=== PATIENT | male | born 1960 | race Caucasian/White ===

== ENCOUNTER 2016-02-27 11:22 | Emergency (ER) | payer OTHER ==
[~2016-02-27] VITALS: Ht 172.7 cm; Wt 73.1 kg
[~2016-02-27 11:22] MED LIST: KEFLEX500 MG PO; KENALOG,ARISTOC80 G1 TP; KENALOG,ARISTOC80 GM TP; KENLAOG,ARISTOC60 ML TP; NAPROSYN500 MG PO; NEOMYCIN-POLYMY10 M1 LEFT EAR; PREDNISONE10 MG PO; PREDNISONE20 MG PO; TRAMADOL HCL50 MG PO; TYLENOL REGULA325 MG PO; ULTRAM50 MG PO; VENTOLIN HFA18 GM IH; VIBRAMYCIN100 MG PO
[2016-02-27] MEDS ORDERED: ULTRAM50 MG PO (14:21)
[2016-02-27] MEDS ORDERED: NEURONTIN300 MG PO (14:21)
[2016-02-27] MEDS ORDERED: NAPROSYN500 MG PO (14:21)
[2016-02-27 14:39] VITALS: BP 129/75
== END 2016-02-27 14:40 | disposition home or self-care (01) ==
LOC: EME 11:22
DX: S82.892A Other fracture of left lower leg, initial encounter for closed fracture (principal); Z98.890 Other specified postprocedural states; Z87.891 Personal history of nicotine dependence
CPT/HCPCS: 73630; 99281; 99284

== ENCOUNTER 2016-03-17 17:30 | Emergency (ER) | payer OTHER ==
[~2016-03-17] VITALS: Ht 172.7 cm; Wt 73.0 kg
[~2016-03-17 17:30] MED LIST changes: +NEURONTIN300 MG PO
[2016-03-17] MEDS ORDERED: ZOFRAN ODT4 MG PO (21:28)
[2016-03-17] MEDS ORDERED: OXAYDO5 MG PO (21:28)
[2016-03-17 21:54] VITALS: BP 113/69
== END 2016-03-17 21:54 | disposition home or self-care (01) ==
LOC: EME 17:30 → EXP 17:30
DX: G89.29 Other chronic pain (principal); M79.672 Pain in left foot; Z79.891 Long term (current) use of opiate analgesic
CPT/HCPCS: 73610; 99281; 99283

== ENCOUNTER 2016-04-09 10:55 | Emergency (ER) | payer OTHER ==
[~2016-04-09] VITALS: Ht 172.7 cm; Wt 72.4 kg
[~2016-04-09 10:55] MED LIST changes: +OXAYDO5 MG PO; +ZOFRAN ODT4 MG PO
[2016-04-09] MEDS ORDERED: PREDNISONE20 MG PO (13:12)
[2016-04-09] MEDS ORDERED: MOBIC15 MG PO ×2 (13:12→13:15)
[2016-04-09 13:25] VITALS: BP 120/76
== END 2016-04-09 13:25 | disposition home or self-care (01) ==
LOC: EME 10:55
DX: M25.572 Pain in left ankle and joints of left foot (principal); S92.002S Unspecified fracture of left calcaneus, sequela; W17.81XS Fall down embankment (hill), sequela; Z59.0 Homelessness; Z91.018 Allergy to other foods; Z88.8 Allergy status to other drugs, medicaments and biological substances; J45.909 Unspecified asthma, uncomplicated
CPT/HCPCS: 99281; 99284; J7512

== ENCOUNTER 2016-06-16 12:22 | Emergency (ER) | payer OTHER ==
[~2016-06-16] VITALS: Ht 172.7 cm; Wt 78.2 kg
[~2016-06-16 12:22] MED LIST changes: +MOBIC15 MG PO
[2016-06-16] MEDS ORDERED: ULTRACET1 TABLET PO (13:55)
[2016-06-16] MEDS ORDERED: INDOCIN50 MG PO (13:55)
[2016-06-16 14:10] VITALS: BP 117/65
== END 2016-06-16 14:11 | disposition home or self-care (01) ==
LOC: EME 12:22
DX: S82.892A Other fracture of left lower leg, initial encounter for closed fracture (principal); X50.9XXA Other and unspecified overexertion or strenuous movements or postures, initial encounter; G89.21 Chronic pain due to trauma; Z91.19 Patient's noncompliance with other medical treatment and regimen; Z98.890 Other specified postprocedural states; Z87.891 Personal history of nicotine dependence
CPT/HCPCS: 73610; 99281; 99284

== ENCOUNTER 2016-08-27 10:03 | Emergency (ER) | payer OTHER ==
[~2016-08-27] VITALS: Ht 172.7 cm; Wt 76.9 kg
[~2016-08-27 10:03] MED LIST changes: +INDOCIN50 MG PO; +ULTRACET1 TABLET PO
[2016-08-27] MEDS ORDERED: HYDROCODON-ACE1 EAC7 PO (14:22)
[2016-08-27] MEDS ORDERED: ALLERGY RELIEF10 M5 PO (14:22)
[2016-08-27] MEDS ORDERED: GABAPENTIN800 MG PO (14:23)
[2016-08-27] MEDS ORDERED: MEDROL DOSEPAK4 MG PO (15:16)
[2016-08-27 15:37] VITALS: BP 118/73
== END 2016-08-27 15:37 | disposition home or self-care (01) ==
LOC: EME 10:03
DX: K12.2 Cellulitis and abscess of mouth (principal)
CPT/HCPCS: 87651 90; 99281; 99284; J1100

== ENCOUNTER 2017-06-16 17:19 | Emergency (ER) | payer OTHER ==
[~2017-06-16] VITALS: Ht 172.7 cm; Wt 83.9 kg
[~2017-06-16 17:19] MED LIST changes: +ALLERGY RELIEF10 M5 PO; +BENTYL20 MG PO; +CELEBREX100 MG PO; +FLEXERIL10 MG PO; +GABAPENTIN800 MG PO; +HYDROCODON-ACE1 EAC7 PO; +MEDROL DOSEPAK4 MG PO; +PERCOCET 7.51 TABLET PO; +ZOFRAN ODT8 MG PO
[2017-06-16 17:34] VITALS: BP 130/89
[2017-06-17] MEDS ORDERED: AMBIEN10 MG PO (03:58)
[2017-06-17] MEDS ORDERED: ATIVAN0.5 MG PO (03:58)
== END 2017-06-16 19:56 | disposition left against medical advice (07) ==
LOC: EME 17:19
DX: R45.851 Suicidal ideations (principal); Z53.21 Procedure and treatment not carried out due to patient leaving prior to being seen by health care provider

== ENCOUNTER 2017-06-16 22:50 | Inpatient (IN) | payer OTHER ==
[~2017-06-16] VITALS: Ht 172.7 cm; Wt 83.5 kg
[2017-06-16 23:57] LABS: HEMATOCRIT 43.1 % (38.0-50.0); HEMOGLOBIN 14.7 G/DL (12.5-16.6); MCH 31.8 PG (29.0-34.0); MCHC 34.1 G/DL (30.0-36.0); MCV 93.3 FL (86-99); PLATELET COUNT 294 K/uL (156-360); RBC DIS.WIDTH-CV 12.8 % (11.8-14.6); RBC DIS.WIDTH-SD 43.8 % (39-53); RED BLOOD COUNT 4.62 M/uL (4.00-5.50); WHITE BLOOD COUNT 7.4 K/uL (4.1-10.2)
[2017-06-17 00:16] LABS: CHLORIDE 102 mEq/L (99-109); POTASSIUM 4.3 mEq/L (3.7-5.4); SODIUM 137 mEq/L (136-147)
[2017-06-17 00:17] LABS: GLUCOSE 59 mg/dL (70-99)
[2017-06-17 00:21] LABS: CREATININE 1.2 mg/dL (0.6-1.3); GFR ESTIMATE (CALCULATED) > 59 mL/min/ (58.99-99999); SERUM ETHYL ALCOHOL 152 mg/dL
[2017-06-17 00:22] LABS: UREA NITROGEN (BUN) 11 mg/dL (9-23)
[2017-06-17 01:46] LABS: AMPHETAMINE NEGATIVE (500 ng/mL); BARBITURATES NEGATIVE (200 ng/mL); BENZODIAZEPINES PRESUMPTIVE POSITIVE (150 ng/mL); BUPRENORPHINE NEGATIVE (10 ng/mL); COCAINE NEGATIVE (150 ng/mL); METHADONE NEGATIVE (200 ng/mL); METHAMPHETAMINE NEGATIVE (500 ng/mL); OPIATES (MORPHINE) NEGATIVE (100 ng/mL); OXYCODONE NEGATIVE (100 ng/mL); PHENCYCLIDINE NEGATIVE (25 ng/mL); PROPOXYPHENE NEGATIVE (300 ng/mL); THC CANNABINOIDS NEGATIVE (50 ng/mL); TRICYCLIC ANTIDEPRESSANTS PRESUMPTIVE POSITIVE (300 ng/mL)
[2017-06-17 03:42] LABS: BENZODIAZEPINES, URINE SCREEN Negative (200 ng/mL)
[2017-06-17] MEDS ORDERED: ATIVAN0.5 MG PO (03:58)
[2017-06-17] MEDS ORDERED: AMBIEN10 MG PO (03:58)
[2017-06-17 04:16] VITALS: BP 166/92
[2017-06-17 07:49] VITALS: BP 144/70
[2017-06-17 15:44] VITALS: BP 143/80
[2017-06-18 09:39] VITALS: BP 154/87
[2017-06-18 16:00] VITALS: BP 152/99
[2017-06-18 17:53] LABS: C DIFF TOXIN NEGATIVE (NEGATIVE)
[2017-06-19 10:05] VITALS: BP 185/100
[2017-06-19 12:05] VITALS: BP 176/67
[2017-06-19 16:40] VITALS: BP 145/88
[2017-06-20 08:47] VITALS: BP 138/88
[2017-06-20 16:06] VITALS: BP 160/100
[2017-06-20 22:23] VITALS: BP 168/96
[2017-06-21 07:55] VITALS: BP 157/90
== END 2017-06-21 14:46 | disposition home or self-care (01) | DRG 882 ==
LOC: EME 22:50 → 1WEST 06-17 02:42 → EDOF 06-17 02:42 → ENRESERV 06-17 03:17 → 1WEST 06-17 04:06
PROVIDERS: Psychiatry & Neurology Psychiatry
DX: F43.23 Adjustment disorder with mixed anxiety and depressed mood (principal); R45.851 Suicidal ideations; F10.10 Alcohol abuse, uncomplicated; J45.909 Unspecified asthma, uncomplicated; Z59.0 Homelessness
CPT/HCPCS: 80048; 84999; 85027; 87493; 90839; 94640; 94640 76; 97165 GO; 99202; 99281; 99285; G0480

== ENCOUNTER 2017-07-09 11:03 | Emergency (ER) | payer OTHER ==
[~2017-07-09] VITALS: Ht 172.7 cm; Wt 79.8 kg
[~2017-07-09 11:03] MED LIST changes: +AMBIEN10 MG PO; +ATIVAN0.5 MG PO
[2017-07-09] MEDS ORDERED: CLEOCIN300 MG PO (12:22)
[2017-07-09 13:07] VITALS: BP 147/92
== END 2017-07-09 13:10 | disposition home or self-care (01) ==
LOC: EME 11:03
PROC: 0H9CXZZ Drainage of Left Upper Arm Skin, External Approach (ICD-10-PCS; principal; 2017-07-09)
DX: L02.412 Cutaneous abscess of left axilla (principal); L03.211 Cellulitis of face; B95.8 Unspecified staphylococcus as the cause of diseases classified elsewhere; J45.909 Unspecified asthma, uncomplicated; Z88.8 Allergy status to other drugs, medicaments and biological substances
CPT/HCPCS: 99281; 99283

== ENCOUNTER 2017-09-01 11:42 | Emergency (ER) | payer OTHER ==
[~2017-09-01] VITALS: Ht 172.7 cm; Wt 79.7 kg
[~2017-09-01 11:42] MED LIST changes: +CLEOCIN300 MG PO
[2017-09-01 13:43] LABS: ALBUMIN 4.4 g/dL (3.2-4.8); CHLORIDE 104 mEq/L (99-109); SODIUM 140 mEq/L (136-147)
[2017-09-01 13:45] LABS: HEMATOCRIT 43.1 % (38.0-50.0); HEMOGLOBIN 14.6 G/DL (12.5-16.6); MCH 31.9 PG (29.0-34.0); MCHC 33.9 G/DL (30.0-36.0); MCV 94.3 FL (86-99); PLATELET COUNT 194 K/uL (156-360); RBC DIS.WIDTH-CV 13.6 % (11.8-14.6); RBC DIS.WIDTH-SD 46.8 % (39-53); RED BLOOD COUNT 4.57 M/uL (4.00-5.50); WHITE BLOOD COUNT 5.3 K/uL (4.1-10.2)
[2017-09-01 13:46] LABS: GLUCOSE 101 mg/dL (70-99); TOTAL PROTEIN 7.7 g/dL (6.4-8.3)
[2017-09-01 13:48] LABS: TOTAL BILIRUBIN 0.5 mg/dL (0.0-1.0)
[2017-09-01 13:49] LABS: ALKALINE PHOSPHATASE 99 IU/L (3-129); GFR ESTIMATE (CALCULATED) > 59 mL/min/ (58.99-99999)
[2017-09-01 13:50] LABS: UREA NITROGEN (BUN) 8 mg/dL (9-23)
[2017-09-01 13:51] LABS: AST (GOT) 72 IU/L (2-34)
[2017-09-01 13:52] LABS: ALT (GPT) 76 IU/L (3-49)
[2017-09-01 14:11] LABS: MONOSPOT (MONONUCLEOSIS SEROL) NEGATIVE
[2017-09-01 18:03] VITALS: BP 187/101
== END 2017-09-01 18:04 | disposition home or self-care (01) ==
LOC: EME 11:42
PROVIDERS: Physician Assistant Medical
DX: J02.9 Acute pharyngitis, unspecified (principal); J45.909 Unspecified asthma, uncomplicated; F32.9 Major depressive disorder, single episode, unspecified
CPT/HCPCS: 70491; 80053; 85027; 86308; 87081; 87651 90; 99281; 99285; J0561; J1100; J7030

== ENCOUNTER 2017-10-10 20:31 | Emergency (ER) | payer OTHER ==
[~2017-10-10] VITALS: Ht 172.7 cm; Wt 80.8 kg
[2017-10-10 23:07] LABS: HEMATOCRIT 40.1 % (38.0-50.0); HEMOGLOBIN 13.7 G/DL (12.5-16.6); MCH 32.2 PG (29.0-34.0); MCHC 34.2 G/DL (30.0-36.0); MCV 94.1 FL (86-99); PLATELET COUNT 168 K/uL (156-360); RBC DIS.WIDTH-CV 13.9 % (11.8-14.6); RBC DIS.WIDTH-SD 47.9 % (39-53); RED BLOOD COUNT 4.26 M/uL (4.00-5.50); WHITE BLOOD COUNT 5.2 K/uL (4.1-10.2)
[2017-10-10 23:18] LABS: CHLORIDE 105 mEq/L (99-109); POTASSIUM 3.7 mEq/L (3.7-5.4); SODIUM 140 mEq/L (136-147)
[2017-10-10 23:20] LABS: GLUCOSE 91 mg/dL (70-99)
[2017-10-10 23:24] LABS: CREATININE 0.9 mg/dL (0.6-1.3); GFR ESTIMATE (CALCULATED) > 59 mL/min/ (58.99-99999)
[2017-10-10 23:25] LABS: UREA NITROGEN (BUN) 4 mg/dL (9-23)
[2017-10-10 23:26] LABS: CREATINE KINASE 592 IU/L (1-294)
[2017-10-11 00:05] LABS: APPEARANCE CLEAR ((CLEAR)); BILIRUBIN NEGATIVE; BLOOD NEGATIVE; COLOR STRAW ((YELLOW)); GLUCOSE (STRIP) NEGATIVE; KETONES NEGATIVE; LEUKOCYTES NEGATIVE; NITRITE NEGATIVE; PROTEIN (STRIP) NEGATIVE; SPECIFIC GRAVITY 1.005 (1.000-1.030); UROBILINOGEN 0.2 MG/DL (0.2-1.0)
[2017-10-11 00:32] VITALS: BP 155/86
== END 2017-10-11 00:33 | disposition home or self-care (01) ==
LOC: EME 20:31
PROVIDERS: Physician Assistant
DX: S46.001A Unspecified injury of muscle(s) and tendon(s) of the rotator cuff of right shoulder, initial encounter (principal); S46.811A Strain of other muscles, fascia and tendons at shoulder and upper arm level, right arm, initial encounter; R74.8 Abnormal levels of other serum enzymes; W01.0XXA Fall on same level from slipping, tripping and stumbling without subsequent striking against object, initial encounter; G89.29 Other chronic pain; J45.909 Unspecified asthma, uncomplicated; F32.9 Major depressive disorder, single episode, unspecified; Z88.8 Allergy status to other drugs, medicaments and biological substances
CPT/HCPCS: 71045; 73030; 80048; 81003; 82550; 85027; 99281; 99284; J3010